=== PATIENT | female | born 1985 | race Caucasian/White ===

== ENCOUNTER 2023-12-15 12:50 | Emergency (ER) | payer OTHER ==
[~2023-12-15] VITALS: Ht 165.1 cm; Wt 54.4 kg
[2023-12-15] MEDS ORDERED: LIDOCAINE 1% INJ 50 ML MDV IJ ONE (13:28)
[2023-12-15] MEDS ORDERED: TDAP [DIPH/PERTUSSIS/TET] 0.5 ML VIAL IM ONE (13:28)
[2023-12-15] MEDS ORDERED: BACI/NEOM/POLY B OINT PKT 1 UDPKT PACKET ONE (13:28)
[2023-12-15] MEDS: BACI/NEOM/POLY B OINT PKT 1 UDPKT PACKET TP ONE (13:42)
[2023-12-15] MEDS: TDAP [DIPH/PERTUSSIS/TET] 0.5 ML VIAL IM ONE (13:42)
[2023-12-15] MEDS: LIDOCAINE 1% INJ 50 ML MDV IJ ONE (13:42)
[2023-12-15] MEDS ORDERED: IBUP-1955 PO (15:43)
[2023-12-15] MEDS ORDERED: CYCL5TAB PO (15:44)
[2023-12-15 16:10] VITALS: BP 138/82; TEMP 98.3; O2SAT 100
== END 2023-12-15 16:11 | disposition home or self-care (01) ==
LOC: ER 12:55
DX: S01.01XA Laceration without foreign body of scalp, initial encounter (principal); S16.1XXA Strain of muscle, fascia and tendon at neck level, initial encounter; V89.2XXA Person injured in unspecified motor-vehicle accident, traffic, initial encounter; Y93.89 Activity, other specified; Y92.89 Other specified places as the place of occurrence of the external cause; Y99.8 Other external cause status
CPT/HCPCS: 12001; 70450; 71045; 72125; 90471; 90715; 99285; J3490